=== PATIENT | male | born 1960 | race Caucasian/White ===

== ENCOUNTER 2019-07-31 11:11 | Emergency (ER) | payer OTHER ==
[~2019-07-31] VITALS: Ht 188 cm; Wt 136.4 kg
[2019-07-31 11:15] VITALS: Ht 188 cm; Wt 136.4 kg
[2019-07-31 12:23] VITALS: BP 112/67
== END 2019-07-31 12:25 | disposition home or self-care (01) ==
LOC: D.ER 11:11
DX: S81.812A Laceration without foreign body, left lower leg, initial encounter (principal); W19.XXXA Unspecified fall, initial encounter; Y93.9 Activity, unspecified; Y92.9 Unspecified place or not applicable